=== PATIENT | male | born 1940 | race Caucasian/White ===

== ENCOUNTER → 2016-04-11 | Outpatient (CLI) | payer BC ==
[~2016-04-11] MED LIST: ATOR-54 PO; BYTI10 SC; CLOP1TAB15 PO; DOCU-94 PO; DUTA0.5C PO; GLC/500 PO; HMLI SC; INSDGI SQ; LABE100T23 PO; LOSA100T26 PO; MULTTAB58 PO; POLY335019 PO; ROSU20TA PO; TAMS0.4C38 PO
[2016-04-11 13:32] VITALS: BP 130/74; PULSE 69; TEMP 37.1; O2SAT 97
--- NOTE | 2016-04-11 16:23 | Radiation Oncology Follow-Up ---
Radiation Oncology Follow-Up Date of Visit Apr 11, 2016. Reason For Visit One-month follow-up Radiation Completion Date Seed - 12/14/15, IMRT - 03/13/16 Diagnosis (1) Prostate cancer Status: Acute Onset Date: 10/22/2012 Location: both lobes the prostate Histology Subtype: adenocarcinoma Stage: ll Permanent Comment: Rising PSA , history of BPH Benign prostate biopsy in 2003 Rising PSA to 11.5 on Avodart Status post ultrasound-guided biopsies 10/22/2012 [place]hel[place] 3+3 1 of 14 biopsies positive Active surveillance Status post rebiopsy 01/10/2014 [place] 3+3 1 of 14 biopsies positive Status post rebiopsy 05/10/2015 [place] 3+41 of 14 biopsies positive Fermagon 120 mg 08/14/2015 Fermagon 80 mg 09/25/2015 Status post prostate seed implant 12/14/2015 59 seeds were placed received 8500 cGy Fermagon 120 mg 02/02/2016 Fermagon 80 mg 03/05/2016 Status post completion of radiation therapy with IMRT/IGRT 03/13/2016 received 4500 cGy Fermagon 80 mg 04/04/2016 (last injection) Last Edited By: Anne Peguero on Apr 11, 2016 16:16 History of Present Illness He has a 75-year-old gentleman previously seen in our office in consultation . He had been followed with serial PSAs and had a known history of benign prostatic hypertrophy. His PSA had risen to 5.76 which converts to 11.5 while on Avodart. He underwent a prostate biopsy 10/22/2012. This revealed one of 14 biopsies to be positive at the right apex. [place] was 3+3 with 16% involvement. Case [id number]. He continued on surveillance and had a recheck biopsy 01/10/2014. This again showed 1 of 14 biopsies positive. This was at the left apex. [place] was 3+3 and involved 30% of the core. He continued active surveillance and had a repeat biopsy 05/10/2015. This showed a [place] 3 +4. He 4 was 10% of the biopsy. A more recent PSA showed an elevation of the PSA at 4.320. He is on Avodart therefore the PSA is 8.64. He was seen in follow-up 05/30/2015. Options of treatment were reviewed with him and he made the decision to be treated with tri-modality. He started hormone suppression with degarelix. On 12/14/2015 he had a prostate seed implant placed. 59 seeds were placed and he received 8500 cGy. Over the past 6 weeks he has had increased urinary symptoms but of late these have now improved. He completed weekly AUA score sheets and brought these with him today. The AUA on 12/21/2015 was 24. December 27 AUA of 26. January 03 AUA was 33. January 10 AUA of 33. January 17 AUA of 33. January 24 AUA score of 16 and this was rechecked in the office and he gave 17. He also completed expanded prostate cancer index composite for clinical practice and gave a score of 2 of 12 and urinary incontinence symptoms. He gave a score of 9 of 12 in urinary irritation symptoms. He gave a score of 3 of 12 in bowel symptoms. He does feel these are improving. He had seen his PCP who recommended prune juice and Merillax. This combination is helping with his bowel symptoms. He gave a score of 8 of 12 in sexual symptoms. He stated this was not a problem. He gave a score of 1 of 12 in hormonal vitality symptoms. His total was 23 of 60. He then returned to undergo CT simulation for IMRT IGRT. The treatment was completed 03/13/2016. He received 4500 cGy Interim History He's been doing well over the past month. His urinary symptoms have steadily improved. His AUA score was 14. He completed expanded prostate cancer index composite for clinical practice and gave a score of 212 and urinary incontinence symptoms. He gave a score of 3 of 12 urinary irritation symptoms. He gave a score of 212 in bowel symptoms. He gave a score of 8 of 12 and sexual symptoms. She notices is not a problem. He gave a score of 3 of 12 in hormonal vitality symptoms. His total was 18 of 60. At the end of treatment he was on tamsulosin 2 pills daily. Approximately 1 week ago he decreased this to one pill a day and has been doing fine at this dose. He saw Dr. Fry week ago and had a post voiding residual evaluation. He stated that the bladder was emptying well. He has developed a problem with anemia over this past year. His primary care physician is now referred him to hematology for iron deficiency anemia. He stated that he was given cards to send in stool specimens as part of his evaluation. He had a PSA 03/13/2016 was less than 0.010. Allergies Coded Allergies: Penicillins (Verified Allergy, Unknown, unknown, 02/20/16) Home Medications Scheduled Atorvastatin (Lipitor), 1 TAB PO QPM Clopidogrel (Plavix), 75 MG PO QAM Dutasteride (Avodart), 0.5 MG PO HS Exenatide (Byetta), 10 MCG SC BID WITH MEALS Insulin Glargine (Lantus), 12-14 UNITS SQ TID Insulin Lispro (Humalog), 0 SC ACHS Labetalol Hcl (Labetalol Hcl), 100 MG PO BID Losartan Potassium & Hydrochlo (Losartan Potassium/Hydroc), 0.5 TAB PO Q2D Metformin Hcl (Glucophage), 500 MG PO BID Multiple Vitamin (Multivitamin), 1 TAB PO QAM Tamsulosin Hcl (Flomax), 1 CAP PO DAILY Scheduled PRN Docusate Sodium (Colace), 1 CAP PO DAILY PRN for Constipation Polyethylene Glycol 3350 (Miralax), 17 GM PO DAILY PRN for Constipation Review of Systems Gastrointestinal: Symptoms: WNL Oral: Symptoms: No Problems Respiratory: Symptoms: WNL Urinary: Symptoms: Nocturia Comments: Nocturia x 1-2, See AUA & EPIC Skin: Symptoms: No Problems Physical Exam Vital Signs Date Time Temp Pulse Resp B/P Pulse Ox O2 Delivery O2 Flow Rate FiO2 04/11/16 13:32 37.1 69 16 130/74 97 Fatigue: None General Appearance: no apparent distress Eyes: normal inspection, EOMI ENT: normal ENT inspection, hearing grossly normal Neck: no adenopathy Respiratory/Chest: lungs clear, no respiratory distress, no accessory muscle use Cardiovascular: regular rate, rhythm, no gallop, no murmur Abdomen: non tender, soft, no organomegaly Extremities: no pedal edema Neurologic/Psychiatric: no motor/sensory deficits, alert, normal mood/affect Skin: warm/dry Lymphatic: no adenopathy Laboratory Studies Test 01/11/16 16:25 01/17/16 11:16 02/20/16 08:53 03/13/16 10:25 Sodium Level 139 mmol/L (136-145) Potassium Level 3.9 mmol/L (3.5-5.1) Chloride Level 103 mmol/L (98-107) Carbon Dioxide Level 29 mmol/L (21-32) Anion Gap 7.0 mmol/L (3-11) Blood Urea Nitrogen 19 mg/dl (7-18) 21 mg/dl (7-18) Creatinine 1.10 mg/dl (0.60-1.40) 1.10 mg/dl (0.60-1.40) Estimated GFR () 76.2 76.2 Estimated GFR (Non- 65.8 65.8 BUN/Creatinine Ratio 16.9 (10-20) 18.9 (10-20) Random Glucose 84 mg/dl (70-99) Estimated Average Glucose 166 mg/dl Hemoglobin A1c 7.4 % (4.5-5.6) Calcium Level 9.0 mg/dl (8.5-10.1) Aspartate Amino Transferase (AST) 21 U/L (15-37) Alanine Aminotransferase (ALT) 29 U/L (12-78) Total Creatine Kinase 299 U/L (39-308) 285 U/L (39-308) Amylase Level 79 U/L (25-115) Lipase 174 U/L (73-393) Immature Granulocyte % (Auto) 0.3 % White Blood Count 7.24 K/uL (4.8-10.8) 4.90 K/uL (4.8-10.8) Red Blood Count 3.86 M/uL (4.7-6.1) 3.55 M/uL (4.7-6.1) Hemoglobin 11.3 g/dl (14.0-18.0) 10.4 g/dL (14.0-18.0) Hematocrit 33.3 % (42-52) 29.8 % (42-52) Mean Corpuscular Volume 86.3 fL (80-100) 83.9 fL (80-100) Mean Corpuscular Hemoglobin 29.3 pg (25-34) 29.3 pg (25-34) Mean Corpuscular Hemoglobin Concent 33.9 g/dl (32-36) 34.9 g/dl (32-36) Platelet Count 278 K/uL (130-400) 218 K/uL (130-400) Mean Platelet Volume 9.1 fL (7.4-10.4) 8.8 fL (7.4-10.4) Neutrophils (%) (Auto) 57.5 % Lymphocytes (%) (Auto) 27.9 % Monocytes (%) (Auto) 10.2 % Eosinophils (%) (Auto) 3.3 % Basophils (%) (Auto) 0.8 % Neutrophils # (Auto) 4.16 K/uL (1.4-6.5) Lymphocytes # (Auto) 2.02 K/uL (1.2-3.4) Monocytes # (Auto) 0.74 K/uL (0.11-0.59) Eosinophils # (Auto) 0.24 K/uL (0-0.5) Basophils # (Auto) 0.06 K/uL (0-0.2) Immature Granulocyte # (Auto) 0.02 K/uL (0.00-0.02) Erythrocyte Sedimentation Rate 12 mm/hr (0-14) Absolute Reticulocyte Count 0.05 10^6/uL (0.02-0.10) 0.04 10^6/uL (0.02-0.10) Percent Reticulocyte Count 1.4 % (0.5-2.0) 1.2 % (0.5-2.0) Haptoglobin 112 MG/DL (43-212) Iron Level 46 mcg/dl (35-175) Transferrin 242 mg/dl (200-360) Transferrin % Saturation 14 % (20-50) Ferritin 122.2 ng/ml (8.0-388.0) Vitamin B12 Level 399 pg/mL (211-911) Folate 11.24 ng/mL (>5.38) RDW Standard Deviation 38.7 fL (36.4-46.3) RDW Coefficient of Variation 12.6 % (11.5-14.5) Prostate Specific Antigen < 0.010 ng/ml (0.000-4.000) Test 03/30/16 13:04 White Blood Count 4.98 K/uL (4.8-10.8) Red Blood Count 3.74 M/uL (4.7-6.1) Hemoglobin 10.9 g/dL (14.0-18.0) Hematocrit 31.5 % (42-52) Mean Corpuscular Volume 84.2 fL (80-100) Mean Corpuscular Hemoglobin 29.1 pg (25-34) Mean Corpuscular Hemoglobin Concent 34.6 g/dl (32-36) Platelet Count 209 K/uL (130-400) Mean Platelet Volume 8.4 fL (7.4-10.4) Neutrophils (%) (Auto) 61.5 % Lymphocytes (%) (Auto) 23.7 % Monocytes (%) (Auto) 10.6 % Eosinophils (%) (Auto) 3.4 % Basophils (%) (Auto) 0.6 % Neutrophils # (Auto) 3.06 K/uL (1.4-6.5) Lymphocytes # (Auto) 1.18 K/uL (1.2-3.4) Monocytes # (Auto) 0.53 K/uL (0.11-0.59) Eosinophils # (Auto) 0.17 K/uL (0-0.5) Basophils # (Auto) 0.03 K/uL (0-0.2) RDW Standard Deviation 39.9 fL (36.4-46.3) RDW Coefficient of Variation 13.0 % (11.5-14.5) Immature Granulocyte % (Auto) 0.2 % Immature Granulocyte # (Auto) 0.01 K/uL (0.00-0.02) Iron Level 51 mcg/dl (35-175) Transferrin 197 mg/dl (200-360) Transferrin % Saturation 18 % (20-50) Ferritin 232.9 ng/ml (8.0-388.0) Assessment & Plan Plan: Continue regular follow-up with his PCP and Dr. Fry. He'll be seeing Dr. Fry in 6 months with a recheck PSA. We discussed the effect of the hormone suppression on the value of the PSA. He understands that the hormonal suppression will continue to affect this until it is out of his system. He had his last injection of Fermagon on 04/04/2016. We also reviewed its side effects. He is having hot flashes and noted fatigue. He was given a order to have PSA prior to his visit which will take place in 6 months. We asked him to call if she has any questions or concerns in the interim. Total Time In Follow-Up I spent 20 minutes speaking to the patient and performing examination. I spent 15 minutes reviewing information in completing this note. Copy To Williams Fry MD, Urology; Reza Alvarado Jr,D.O.
== END | disposition home or self-care (01) ==
LOC: C.ONC 13:28
PROVIDERS: ATTEND Radiology Radiation Oncology
DX: Z08 Encounter for follow-up examination after completed treatment for malignant neoplasm (principal); Z92.3 Personal history of irradiation; Z85.46 Personal history of malignant neoplasm of prostate

== ENCOUNTER → 2016-04-15 | Outpatient (CLI) | payer BC | END | disposition home or self-care (01) | LOC: C.LAB 09:31 | DX: D64.9 Anemia, unspecified (principal) ==

== ENCOUNTER → 2016-05-14 | Outpatient (CLI) | payer BC ==
[2016-05-14 13:11] LABS: BASO % 1.1 %; BASO ABS # 0.06 K/uL (0-0.2); COMPLETE YES; EOS % 3.3 %; HEMATOCRIT 31.8 % (42-52); IG% 0.4 %; LYMPH % 21.2 %; LYMPH ABS # 1.16 K/uL (1.2-3.4); MEAN CORPUSCULAR HEMOGLOBIN 29.9 pg (25-34); MEAN CORPUSCULAR HGB CONC 35.2 g/dl (32-36); MEAN PLATELET VOLUME 9.2 fL (7.4-10.4); MONO % 10.2 %; NEUT % 63.8 %; PLATELET COUNT 252 K/uL (130-400); RED BLOOD COUNT 3.74 M/uL (4.7-6.1); WHITE BLOOD COUNT 5.48 K/uL (4.8-10.8)
[2016-05-14 13:19] LABS: ALT/SGPT 28 U/L (12-78); AST/SGOT 20 U/L (15-37); BLOOD UREA NITROGEN 22 mg/dl (7-18); BUN/CREATININE RATIO 18.5 (10-20); CARBON DIOXIDE 26 mmol/L (21-32); CHLORIDE 105 mmol/L (98-107); GLUCOSE 87 mg/dl (70-99); POTASSIUM 4.2 mmol/L (3.5-5.1); SODIUM 142 mmol/L (136-145)
[2016-05-14 13:24] LABS: ESTIMATED AVERAGE GLUCOSE 151 mg/dl; HA1C FLAG Normal (Normal)
== END | disposition home or self-care (01) ==
LOC: C.LAB 12:05
DX: E11.9 Type 2 diabetes mellitus without complications (principal); D64.9 Anemia, unspecified; E78.5 Hyperlipidemia, unspecified; I10 Essential (primary) hypertension

== ENCOUNTER → 2016-07-03 | Outpatient (CLI) | payer BC ==
[~2016-07-03] MED LIST changes: +INSDGIPEN SC; +INSU100I SC; -LOSA100T26 PO; +LOSA100T33 PO
[2016-07-03 13:47] LABS: BLOOD UREA NITROGEN 28 mg/dl (7-18); BUN/CREATININE RATIO 23.1 (10-20)
[2016-07-03 13:51] LABS: PROSTATE SPECIFIC ANTIGEN < 0.010 ng/ml (0.000-4.000)
== END | disposition home or self-care (01) ==
LOC: C.LAB 12:24
PROVIDERS: ATTEND Urology
DX: N40.1 Benign prostatic hyperplasia with lower urinary tract symptoms (principal)

== ENCOUNTER → 2016-08-20 | Outpatient (CLI) | payer BC ==
--- NOTE | 2016-08-20 12:56 | DIAGNOSTIC IMAGING REPORT ---
LEFT HAND 3 VIEWS CLINICAL HISTORY: Left hand pain. Anemia. Arthritis. FINDINGS: 3 views of left hand are obtained. No prior studies are available for comparison at the time of dictation. The skeletal structures are osteopenic. No fracture is identified. Degenerative narrowing is seen at the radiocarpal articulation. Moderate arthritic changes present the first metacarpophalangeal joint. Erosive arthritic change is seen at the second distal interphalangeal joint. Only mild arthritic change is present involving the remainder of the interphalangeal joints. Small bony erosions are suggested in the second through fifth metacarpal heads. Mild soft tissue swelling suggested in the fingers. Vascular calcifications are suggested along the volar aspect of the wrist. IMPRESSION: 1. No acute bony abnormality is identified. 2. Osteopenia and degenerative change as above, greatest involving the first metacarpophalangeal and the second distal interphalangeal joints. Electronically signed by: Charles Ttoh M.D. 08/20/2016 12:55 PM Dictated Date/Time: 08/20/2016 12:53 PM
[2016-08-20 13:30] LABS: BASO % 1.1 %; BASO ABS # 0.06 K/uL (0-0.2); COMPLETE YES; EOS % 3.1 %; HEMATOCRIT 34.2 % (42-52); IG% 0.2 %; LYMPH % 26.3 %; LYMPH ABS # 1.46 K/uL (1.2-3.4); MEAN CELL VOLUME 87.2 fL (80-100); MEAN CORPUSCULAR HEMOGLOBIN 29.8 pg (25-34); MEAN CORPUSCULAR HGB CONC 34.2 g/dl (32-36); MEAN PLATELET VOLUME 9.3 fL (7.4-10.4); NEUT % 58.3 %; PLATELET COUNT 264 K/uL (130-400); RED BLOOD COUNT 3.92 M/uL (4.7-6.1); WHITE BLOOD COUNT 5.56 K/uL (4.8-10.8)
[2016-08-20 14:07] LABS: ESTIMATED AVERAGE GLUCOSE 157 mg/dl; HA1C FLAG Normal (Normal)
[2016-08-20 14:43] LABS: ALT/SGPT 32 U/L (12-78); AST/SGOT 22 U/L (15-37); BLOOD UREA NITROGEN 25 mg/dl (7-18); CALCIUM 9.1 mg/dl (8.5-10.1); CARBON DIOXIDE 31 mmol/L (21-32); CHLORIDE 105 mmol/L (98-107); GLUCOSE 106 mg/dl (70-99); POTASSIUM 4.4 mmol/L (3.5-5.1); SODIUM 141 mmol/L (136-145)
[2016-08-20 14:47] LABS: C-REACTIVE PROTEIN < 0.29 mg/dl (0-0.29); CHOLESTEROL 143 mg/dl (0-200); HDL CHOLESTEROL 48 mg/dl; LDL CHOLESTEROL CALCULATED 77 mg/dl; RHEUMATOID FACTOR < 10.0 U/mL (0-15); TRIGLYCERIDES 90 mg/dl (0-150); VERY LOW DENSITY LIPOPROT CALC 18 mg/dl
[2016-08-20 15:25] LABS: LYME DISEASE AB IGG NEG (NEG); LYME DISEASE AB IGM NEG (NEG)
== END | disposition home or self-care (01) ==
LOC: C.RAD 12:04
DX: I10 Essential (primary) hypertension (principal); M19.90 Unspecified osteoarthritis, unspecified site; E11.9 Type 2 diabetes mellitus without complications; E78.5 Hyperlipidemia, unspecified

== ENCOUNTER → 2016-09-09 | Outpatient (CLI) | payer BC ==
[2016-09-09 12:49] LABS: BASO % 0.7 %; BASO ABS # 0.04 K/uL (0-0.2); COMPLETE YES; EOS % 3.1 %; HEMATOCRIT 32.7 % (42-52); IG% 0.2 %; LYMPH % 24.4 %; LYMPH ABS # 1.44 K/uL (1.2-3.4); MEAN CELL VOLUME 86.7 fL (80-100); MEAN CORPUSCULAR HEMOGLOBIN 28.6 pg (25-34); NEUT % 63.6 %; PLATELET COUNT 270 K/uL (130-400); RED BLOOD COUNT 3.77 M/uL (4.7-6.1); WHITE BLOOD COUNT 5.89 K/uL (4.8-10.8)
[2016-09-09 13:14] LABS: ALT/SGPT 35 U/L (12-78); BLOOD UREA NITROGEN 21 mg/dl (7-18); BUN/CREATININE RATIO 18.6 (10-20); CARBON DIOXIDE 28 mmol/L (21-32); CHLORIDE 105 mmol/L (98-107); GLUCOSE 109 mg/dl (70-99); POTASSIUM 4.2 mmol/L (3.5-5.1); SODIUM 141 mmol/L (136-145)
[2016-09-09 13:15] LABS: ALB/GLOB RATIO 1.1 (0.9-2); ALKALINE PHOSPHATASE 64 U/L (45-117); AST/SGOT 26 U/L (15-37)
== END | disposition home or self-care (01) ==
LOC: C.LAB 10:21
PROVIDERS: ATTEND Internal Medicine Hematology & Oncology
DX: D64.9 Anemia, unspecified (principal)

== ENCOUNTER → 2016-10-02 | Outpatient (CLI) | payer BC ==
[~2016-10-02] MED LIST changes: -INSDGIPEN SC; -INSU100I SC; +LOSA100T26 PO; -LOSA100T33 PO
[2016-10-02 14:15] VITALS: BP 136/62; PULSE 72; TEMP 37.1; O2SAT 95
--- NOTE | 2016-10-02 15:42 | Radiation Oncology Follow-Up ---
Radiation Oncology Follow-Up Date of Visit Oct 02, 2016. Reason For Visit 6 month follow-up Radiation Completion Date Hormonal therapy;Seed implant 12/14/15;Ext. RT 03/13/16 Diagnosis (1) Prostate cancer Status: Resolved Onset Date: 10/22/2012 Location: both lobes the prostate Histology Subtype: adenocarcinoma Stage: ll Permanent Comment: Rising PSA , history of BPH Benign prostate biopsy in 2003 Rising PSA to 11.5 on Avodart Status post ultrasound-guided biopsies 10/22/2012 [place] 3+3 1 of 14 biopsies positive Active surveillance Status post rebiopsy 01/10/2014 [place] 3+3 1 of 14 biopsies positive Status post rebiopsy 05/10/2015 [place] 3+41 of 14 biopsies positive Fermagon 120 mg 08/14/2015 Fermagon 80 mg 09/25/2015 Status post prostate seed implant 12/14/2015 59 seeds were placed received 8500 cGy Fermagon 120 mg 02/02/2016 Fermagon 80 mg 03/05/2016 Status post completion of radiation therapy with IMRT/IGRT 03/13/2016 received 4500 cGy Fermagon 80 mg 04/04/2016 (last injection) Last Edited By: Anne Peguero on Apr 11, 2016 16:16 History of Present Illness This is a 75-year-old gentleman previously seen in our office in consultation . He had been followed with serial PSAs and had a known history of benign prostatic hypertrophy. His PSA had risen to 5.76 which converts to 11.5 while on Avodart. He underwent a prostate biopsy 10/22/2012. This revealed one of 14 biopsies to be positive at the right apex. [place] was 3+3 with 16% involvement. Case [id number]. He continued on surveillance and had a recheck biopsy 01/10/2014. This again showed 1 of 14 biopsies positive. This was at the left apex. [place] was 3+3 and involved 30% of the core. He continued active surveillance and had a repeat biopsy 05/10/2015. This showed a [place] 3 +4. He 4 was 10% of the biopsy. A more recent PSA showed an elevation of the PSA at 4.320. He is on Avodart therefore the PSA is 8.64. He was seen in follow-up 05/30/2015. Options of treatment were reviewed with him and he made the decision to be treated with tri-modality. He started hormone suppression with degarelix. On 12/14/2015 he had a prostate seed implant placed. 59 seeds were placed and he received 8500 cGy. Over the past 6 weeks he has had increased urinary symptoms but of late these have now improved. He completed weekly AUA score sheets and brought these with him today. The AUA on 12/21/2015 was 24. December 27 AUA of 26. January 03 AUA was 33. January 10 AUA of 33. January 17 AUA of 33. January 24 AUA score of 16 and this was rechecked in the office and he gave 17. He also completed expanded prostate cancer index composite for clinical practice and gave a score of 2 of 12 and urinary incontinence symptoms. He gave a score of 9 of 12 in urinary irritation symptoms. He gave a score of 3 of 12 in bowel symptoms. He does feel these are improving. He had seen his PCP who recommended prune juice and Merillax. This combination is helping with his bowel symptoms. He gave a score of 8 of 12 in sexual symptoms. He stated this was not a problem. He gave a score of 1 of 12 in hormonal vitality symptoms. His total was 23 of 60. He then returned to undergo CT simulation for IMRT IGRT. The treatment was completed 03/13/2016. He received 4500 cGy Interim History He is stable from urinary standpoint. His AUA score was 13. He continues on tamsulosin once daily. Though the androgen deprivation finished in March continues to have hot flashes. He feels these have increased of late. These occur 3-4 times during the day and 3-4 times during the night. He did see Dr. Fry 07/10/2016. He is up-to-date on PSA evaluations. He had a PSA 2016 and that was less than 0.010. He is also following with Dr. Singh regards to iron deficiency anemia. He completed and expanded prostate cancer index composite for clinical practice. He gave a score of one of 12 and urinary incontinence symptoms. He gave a score of 2 of 12 urinary irritation symptoms. He of score 0 of 12 and bowel symptoms. He gave a score of 8 of 12 in sexual symptoms. To note he stated this was not a problem. He gave a score of one of 12 and hormonal vitality symptoms. His total was 12 of 60. Allergies Coded Allergies: Penicillins (Verified Allergy, Unknown, unknown, 02/20/16) Home Medications Scheduled Clopidogrel (Plavix), 75 MG PO QAM Dutasteride (Avodart), 0.5 MG PO HS Exenatide (Byetta), 10 MCG SC BID WITH MEALS Hctz/Losartan (Hyzaar 12.5MG/100MG), 0.5 TAB PO Q2D Insulin Glargine (Lantus), 12-14 UNITS SQ TID Insulin Lispro (Humalog), 0 SC ACHS Labetalol Hcl (Labetalol Hcl), 100 MG PO BID Metformin Hcl (Glucophage), 500 MG PO BID Rosuvastatin Calcium (Crestor), 1 TAB PO DAILY Tamsulosin Hcl (Flomax), 1 CAP PO DAILY Scheduled PRN Docusate Sodium (Colace), 1 CAP PO DAILY PRN for Constipation Polyethylene Glycol 3350 (Miralax), 17 GM PO DAILY PRN for Constipation Review of Systems Gastrointestinal: Symptoms: WNL GI Comments: Diarrhea over past 2 days;No fiber supplements; Oral: Symptoms: No Problems Respiratory: Symptoms: WNL Urinary: Symptoms: WNL Comments: 2 voids/night;Stream stops/goes during void;taking tamsulosin; Skin: Symptoms: No Problems Physical Exam Vital Signs Date Time Temp Pulse Resp B/P (MAP) Pulse Ox O2 Delivery O2 Flow Rate FiO2 10/02/16 14:15 37.1 72 16 136/62 95 Pain: Patient Pain Scale: 0 - 10 Initial Pain Intensity: 0.0 Fatigue: None General Appearance: no apparent distress Eyes: normal inspection, EOMI ENT: normal ENT inspection, hearing grossly normal Neck: no adenopathy, thyroid normal Respiratory/Chest: lungs clear, no respiratory distress, no accessory muscle use Cardiovascular: regular rate, rhythm, no gallop, no murmur Abdomen: non tender, soft, no organomegaly Anal / Rectum: Normal sphincter tone. Prostate consistent with seed implant. No rectal masses no rectal bleeding. Extremities: no pedal edema Neurologic/Psychiatric: no motor/sensory deficits, alert, normal mood/affect Skin: warm/dry Laboratory Studies Test 07/03/16 12:30 08/20/16 12:24 09/09/16 10:25 Prostate Specific Antigen < 0.010 ng/ml (0.000-4.000) White Blood Count 5.56 K/uL (4.8-10.8) 5.89 K/uL (4.8-10.8) Red Blood Count 3.92 M/uL (4.7-6.1) 3.77 M/uL (4.7-6.1) Hemoglobin 11.7 g/dL (14.0-18.0) 10.8 g/dL (14.0-18.0) Hematocrit 34.2 % (42-52) 32.7 % (42-52) Mean Corpuscular Volume 87.2 fL (80-100) 86.7 fL (80-100) Mean Corpuscular Hemoglobin 29.8 pg (25-34) 28.6 pg (25-34) Mean Corpuscular Hemoglobin Concent 34.2 g/dl (32-36) 33.0 g/dl (32-36) Platelet Count 264 K/uL (130-400) 270 K/uL (130-400) Mean Platelet Volume 9.3 fL (7.4-10.4) 9.0 fL (7.4-10.4) Neutrophils (%) (Auto) 58.3 % 63.6 % Lymphocytes (%) (Auto) 26.3 % 24.4 % Monocytes (%) (Auto) 11.0 % 8.0 % Eosinophils (%) (Auto) 3.1 % 3.1 % Basophils (%) (Auto) 1.1 % 0.7 % Neutrophils # (Auto) 3.25 K/uL (1.4-6.5) 3.75 K/uL (1.4-6.5) Lymphocytes # (Auto) 1.46 K/uL (1.2-3.4) 1.44 K/uL (1.2-3.4) Monocytes # (Auto) 0.61 K/uL (0.11-0.59) 0.47 K/uL (0.11-0.59) Eosinophils # (Auto) 0.17 K/uL (0-0.5) 0.18 K/uL (0-0.5) Basophils # (Auto) 0.06 K/uL (0-0.2) 0.04 K/uL (0-0.2) RDW Standard Deviation 40.5 fL (36.4-46.3) 40.7 fL (36.4-46.3) RDW Coefficient of Variation 12.7 % (11.5-14.5) 12.7 % (11.5-14.5) Immature Granulocyte % (Auto) 0.2 % 0.2 % Immature Granulocyte # (Auto) 0.01 K/uL (0.00-0.02) 0.01 K/uL (0.00-0.02) Erythrocyte Sedimentation Rate 33 mm/hr (0-14) Absolute Reticulocyte Count 0.04 10^6/uL (0.02-0.10) Percent Reticulocyte Count 1.1 % (0.5-2.0) Sodium Level 141 mmol/L (136-145) 141 mmol/L (136-145) Potassium Level 4.4 mmol/L (3.5-5.1) 4.2 mmol/L (3.5-5.1) Chloride Level 105 mmol/L (98-107) 105 mmol/L (98-107) Carbon Dioxide Level 31 mmol/L (21-32) 28 mmol/L (21-32) Anion Gap 5.0 mmol/L (3-11) 8.0 mmol/L (3-11) Blood Urea Nitrogen 25 mg/dl (7-18) 21 mg/dl (7-18) Creatinine 1.10 mg/dl (0.60-1.40) 1.10 mg/dl (0.60-1.40) Estimated GFR () 75.7 75.7 Estimated GFR (Non- 65.3 65.3 BUN/Creatinine Ratio 23.0 (10-20) 18.6 (10-20) Random Glucose 106 mg/dl (70-99) 109 mg/dl (70-99) Estimated Average Glucose 157 mg/dl Hemoglobin A1c 7.1 % (4.5-5.6) Calcium Level 9.1 mg/dl (8.5-10.1) 9.0 mg/dl (8.5-10.1) Iron Level 63 mcg/dl (35-175) Transferrin 235 mg/dl (200-360) Transferrin % Saturation 19 % (20-50) Ferritin 203.0 ng/ml (8.0-388.0) Aspartate Amino Transferase (AST) 22 U/L (15-37) 26 U/L (15-37) Alanine Aminotransferase (ALT) 32 U/L (12-78) 35 U/L (12-78) Total Creatine Kinase 350 U/L (39-308) C-Reactive Protein < 0.29 mg/dl (0-0.29) Triglycerides Level 90 mg/dl (0-150) Cholesterol Level 143 mg/dl (0-200) HDL Cholesterol 48 mg/dl LDL Cholesterol, Calculated 77 mg/dl VLDL Cholesterol, Calculated 18 mg/dl Cholesterol/HDL Ratio 3.0 Rheumatoid Factor < 10.0 U/mL (0-15) Anti-Nuclear Antibody Screen NEGATIVE (NEGATIVE) Lyme Disease IgG Antibody NEG (NEG) Lyme Disease IgM Antibody NEG (NEG) Total Bilirubin 0.7 mg/dl (0.2-1) Alkaline Phosphatase 64 U/L (45-117) Lactate Dehydrogenase 387 U/L (87-241) Total Protein 6.7 gm/dl (6.4-8.2) Albumin 3.5 gm/dl (3.4-5.0) Globulin 3.2 gm/dl (2.5-4.0) Albumin/Globulin Ratio 1.1 (0.9-2) Assessment & Plan Plan: We reviewed his PSA. We discussed the hot flashes. He is going to try vitamin E 400 international units daily. Continue follow-up with Dr. Fry. He'll be seeing him in January. We asked him to return to our office in July 2017. Continue with recheck PSAs. He may call if he has the questions or concerns in the interim. Total Time In Follow-Up I spent 20 minutes speaking to the patient and performing examination. I spent 15 minutes reviewing information and completing this note. Copy To Williams Fry MD, Urology; Reza Alvarado,Jr,D.O.
== END | disposition home or self-care (01) ==
LOC: C.ONC 13:57
PROVIDERS: ATTEND Physician Assistant Medical
DX: Z08 Encounter for follow-up examination after completed treatment for malignant neoplasm (principal); Z92.3 Personal history of irradiation; Z85.46 Personal history of malignant neoplasm of prostate

== ENCOUNTER → 2017-01-01 | Outpatient (CLI) | payer BC ==
[~2017-01-01] MED LIST changes: -ATOR-54 PO; -MULTTAB58 PO
[2017-01-01 10:15] LABS: BASO % 0.5 %; BASO ABS # 0.03 K/uL (0-0.2); COMPLETE YES; EOS % 3.5 %; HEMATOCRIT 32.3 % (42-52); IG% 0.3 %; LYMPH % 23.1 %; LYMPH ABS # 1.46 K/uL (1.2-3.4); MEAN CELL VOLUME 85.2 fL (80-100); MEAN CORPUSCULAR HEMOGLOBIN 28.5 pg (25-34); MEAN CORPUSCULAR HGB CONC 33.4 g/dl (32-36); MEAN PLATELET VOLUME 8.9 fL (7.4-10.4); MONO % 8.9 %; NEUT % 63.7 %; PLATELET COUNT 244 K/uL (130-400); RED BLOOD COUNT 3.79 M/uL (4.7-6.1); WHITE BLOOD COUNT 6.31 K/uL (4.8-10.8)
[2017-01-01 10:44] LABS: ALT/SGPT 32 U/L (12-78); BLOOD UREA NITROGEN 20 mg/dl (7-18); BUN/CREATININE RATIO 18.5 (10-20); CALCIUM 9.3 mg/dl (8.5-10.1); CARBON DIOXIDE 28 mmol/L (21-32); CHLORIDE 103 mmol/L (98-107); GLUCOSE 186 mg/dl (70-99); POTASSIUM 4.1 mmol/L (3.5-5.1); SODIUM 138 mmol/L (136-145)
[2017-01-01 10:46] LABS: ALKALINE PHOSPHATASE 76 U/L (45-117); AST/SGOT 22 U/L (15-37)
[2017-01-02 16:58] LABS: ALBUMIN 3.7 G/DL (3.8-4.8); GAMMA GLOBULIN 0.8 G/DL (0.8-1.7); TOTAL PROTEIN 6.4 G/DL (6.2-8.3)
== END | disposition home or self-care (01) ==
LOC: C.LAB 09:42
PROVIDERS: ATTEND Internal Medicine Hematology & Oncology
DX: D64.9 Anemia, unspecified (principal)

== ENCOUNTER 2017-02-17 11:38 | Emergency (ER) | payer BC ==
[~2017-02-17] VITALS: Ht 162.6 cm; Wt 95.6 kg
[~2017-02-17 11:38] MED LIST changes: -LOSA100T26 PO; +LOSA100T33 PO
[2017-02-17 11:48] VITALS: Ht 162.6 cm; Wt 95.6 kg
--- NOTE | 2017-02-17 12:41 | DIAGNOSTIC IMAGING REPORT ---
L WRIST MIN 3 VIEWS ROUTINE CLINICAL HISTORY: LEFT, FALL ON EXTENDED LEFT WRIST. COMPARISON: Left hand radiograph August 20, 2016. FINDINGS: Alignment of the left wrist is anatomic. No fracture is identified. 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 IMPRESSION: No acute fracture or dislocation within the left wrist. Electronically signed by: Chris Raymond M.D. 02/17/2017 12:39 PM Dictated Date/Time: 02/17/2017 12:36 PM
[2017-02-17] MEDS ORDERED: INSU100I SC (12:48)
[2017-02-17] MEDS ORDERED: INSDGIPEN SC (12:48)
--- NOTE | 2017-02-17 13:15 | EMERGENCY ROOM VISIT NOTE ---
ED Visit Note First contact with patient: 12:04 CHIEF COMPLAINT: Left wrist injury 2 days ago HISTORY OF PRESENT ILLNESS: Patient is a [id number] 76-year-old white male who presents to the emergency department for evaluation of left wrist pain x 2 days. He tripped over a curb and fell early Friday morning. He tried to catch himself on his outstretched left hand/wrist. He had immediate onset of pain in the left wrist, thumb side. He applied ice to the area and took Tylenol through the weekend. He notes pain and swelling in the wrist and hand. 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 He rates his discomfort a 4/10. He denies any elbow pain. REVIEW OF SYSTEMS: Review of systems as per HPI. All other systems reviewed were negative. At least 6 systems reviewed. PMH: Electronic medical records are reviewed and summarized as above/below. See Problem List. SOCIAL HISTORY: Patient lives at home with his . Employed. PHYSICAL EXAM: Vital Signs: Reviewed Nurse's notes. CONSTITUTIONAL: Patient is a pleasant, well-appearing 76-year-old white male who is awake and alert and in no acute distress. MUSCULOSKELETAL: Examination of the left wrist show moderate circumferential soft tissue swelling. He is primarily tender over the distal radius, both dorsally, and laterally. There is no anatomic snuffbox tenderness. No pain along the first metacarpal. There is no obvious deformity of the distal forearm. The skin is intact. Flexion and extension of the fingers is intact. The fingers are warm and well perfused. EMERGENCY DEPARTMENT COURSE: X-rays of the left wrist were obtained, and negative for acute fracture or bony abnormality. Patient was placed in a wrist lacer. Conservative care measures were discussed. Differential diagnoses entertained included fracture, dislocation, sprain, contusion, dorsal impaction injury, among others. He was encouraged to rest, ice, elevate and wear the splint, and to follow-up with orthopedics if his symptoms are not improving. Blood pressure screening: Patient was found to have a slightly elevated blood pressure due to circumstances. I do not believe that the patient requires hypertension monitoring. Medication reconciliation: I attest that I have personally reviewed the patient' s current medication list. L WRIST MIN 3 VIEWS ROUTINE CLINICAL HISTORY: LEFT, FALL ON EXTENDED LEFT WRIST. COMPARISON: Left hand radiograph August 20, 2016. FINDINGS: Alignment of the left wrist is anatomic. No fracture is identified. 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 IMPRESSION: No acute fracture or dislocation within the left wrist. Problem List Medical Problems: (1) Diabetes Status: Chronic (2) Hyperlipidemia Nec/Nos Status: Chronic (3) Hypertension Nos Status: Chronic (4) Hypoglycemia Status: Resolved (5) Prostate cancer Permanent Comment: Rising PSA , history of BPH Benign prostate biopsy in 2003 Rising PSA to 11.5 on Avodart Status post ultrasound-guided biopsies 10/22/2012 [place] 3+3 1 of 14 biopsies positive Active surveillance Status post rebiopsy 01/10/2014 Nohelia 3+3 1 of 14 biopsies positive Status post rebiopsy 05/10/2015 [place] 3+41 of 14 biopsies positive Fermagon 120 mg 08/14/2015 Fermagon 80 mg 09/25/2015 Status post prostate seed implant 12/14/2015 59 seeds were placed received 8500 cGy Fermagon 120 mg 02/02/2016 Fermagon 80 mg 03/05/2016 Status post completion of radiation therapy with IMRT/IGRT 03/13/2016 received 4500 cGy Fermagon 80 mg 04/04/2016 (last injection) Status: Resolved Current/Historical Medications Scheduled Clopidogrel (Plavix), 75 MG PO QAM Dutasteride (Avodart), 0.5 MG PO HS Exenatide (Byetta), 10 MCG SC BID WITH MEALS Hctz/Losartan (Hyzaar 12.5MG/100MG), 0.5 TAB PO Q2D Insulin Glargine (Lantus Solostar), 12-14 UNITS SC TID Insulin Lispro (Human) (Humalog), UNITS SC ACHS Labetalol Hcl (Labetalol Hcl), 100 MG PO BID Metformin Hcl (Glucophage), 500 MG PO BID Rosuvastatin Calcium (Crestor), 1 TAB PO DAILY Tamsulosin Hcl (Flomax), 1 CAP PO DAILY Scheduled PRN Polyethylene Glycol 3350 (Miralax), 17 GM PO DAILY PRN for Constipation Allergies Coded Allergies: Penicillins (Verified Allergy, Unknown, unknown, 02/17/17) Vital Signs Date Time Temp Pulse Resp B/P (MAP) Pulse Ox O2 Delivery O2 Flow Rate FiO2 02/17/17 13:52 36.8 77 18 144/72 97 02/17/17 11:48 36.8 68 18 157/65 95 Room Air Departure Information Impression Primary Impression: Left wrist sprain Referrals Reza Alvarado Jr, D.O. (PCP) Mehul Schreiber D.O. Patient Instructions My [facility] Additional Instructions Ibuprofen(Motrin, Advil) may be used for fever or pain. Use 600mg every six hours as needed. Take with food. Avoid using more than 2400mg in a 24 hour period. Do not use 2400mg per day for more than three consecutive days without physician direction. Prolonged inappropriate use can lead to stomach upset or ulcers. This medication can be taken if you need to drive, work, or perform activities which may be dangerous when taking narcotic pain medication. (AND/OR) Acetaminophen(Tylenol) may be used for fever or pain. Use 1000mg every six hours as needed. Avoid using more than 3000mg in a 24 hour period. This medication can be taken if you need to drive, work, or perform activities which may be dangerous when taking narcotic pain medication. Ice compresses for 20 minutes at a time four times daily for 2-3 days. Use the wrist lacer as instructed. Rest and elevate your injury. Continue current medications. Return to the ER immediately for any numbness, tingling, severe pain, extreme swelling in the extremity or as needed. Followup with your family doctor or orthopedic surgery if no improvement in 5-7 days.
[2017-02-17 13:52] VITALS: BP 144/72; PULSE 77; TEMP 36.8; O2SAT 97
--- NOTE | 2017-02-17 14:06 | EMERGENCY ROOM VISIT NOTE ---
ED Visit Note First contact with patient: 12:04 Pt seen and examined at bedside. Xrays reviews, splint in place. Pt aware of all results, states splint not too tight, aware of need for follow-up, verbalized understanding of reasons to return.
== END 2017-02-17 13:57 | disposition home or self-care (01) ==
LOC: C.EDB 11:41 → C.EDD 13:57
DX: S63.502A Unspecified sprain of left wrist, initial encounter (principal); W10.1XXA Fall (on)(from) sidewalk curb, initial encounter; E11.9 Type 2 diabetes mellitus without complications; E78.5 Hyperlipidemia, unspecified; I10 Essential (primary) hypertension; Z80.42 Family history of malignant neoplasm of prostate; Z79.01 Long term (current) use of anticoagulants; Z79.4 Long term (current) use of insulin; Z79.84 Long term (current) use of oral hypoglycemic drugs; Z79.899 Other long term (current) drug therapy

== ENCOUNTER → 2017-03-17 | Outpatient (CLI) | payer BC ==
[~2017-03-17] MED LIST changes: -DOCU-94 PO; -HMLI SC; -INSDGI SQ; +INSDGIPEN SC; +INSU100I SC
[2017-03-17 14:15] LABS: BLOOD UREA NITROGEN 21 mg/dl (7-18); BUN/CREATININE RATIO 18.5 (10-20); CREATININE 1.13 mg/dl (0.60-1.40)
[2017-03-17 14:20] LABS: PROSTATE SPECIFIC ANTIGEN 0.012 ng/ml (0.000-4.000)
== END | disposition home or self-care (01) ==
LOC: C.LAB 11:41
PROVIDERS: ATTEND Urology
DX: C61 Malignant neoplasm of prostate (principal)

== ENCOUNTER → 2017-04-03 | Outpatient (CLI) | payer BC ==
[~2017-04-03] MED LIST changes: -LABE100T23 PO; +LABE100T3 PO
[2017-04-03 14:12] LABS: BASO % 0.7 %; BASO ABS # 0.05 K/uL (0-0.2); EOS % 3.2 %; EOS ABS # 0.22 K/uL (0-0.5); HEMATOCRIT 34.6 % (42-52); HEMOGLOBIN 11.5 g/dL (14.0-18.0); IG# 0.01 K/uL (0.00-0.02); LYMPH % 24.8 %; LYMPH ABS # 1.73 K/uL (1.2-3.4); MEAN CELL VOLUME 85.6 fL (80-100); MEAN CORPUSCULAR HEMOGLOBIN 28.5 pg (25-34); MEAN CORPUSCULAR HGB CONC 33.2 g/dl (32-36); MEAN PLATELET VOLUME 9.5 fL (7.4-10.4); MONO % 11.5 %; NEUT % 59.7 %; NEUT ABS # 4.16 K/uL (1.4-6.5); PLATELET COUNT 253 K/uL (130-400); RED CELL DISTRIBUTION WIDTH SD 41.2 fL (36.4-46.3); WHITE BLOOD COUNT 6.97 K/uL (4.8-10.8)
[2017-04-03 17:14] LABS: AST/SGOT 23 U/L (15-37); BLOOD UREA NITROGEN 19 mg/dl (7-18); CALCIUM 8.9 mg/dl (8.5-10.1); CARBON DIOXIDE 31 mmol/L (21-32); CHOLESTEROL 116 mg/dl (0-200); GLUCOSE 127 mg/dl (70-99); LDL CHOLESTEROL CALCULATED 43 mg/dl; POTASSIUM 4.1 mmol/L (3.5-5.1); SODIUM 136 mmol/L (136-145)
[2017-04-03 17:16] LABS: ALT/SGPT 37 U/L (12-78)
[2017-04-03 18:14] LABS: CREATININE RANDOM URINE 57.9 mg/dl
== END | disposition home or self-care (01) ==
LOC: C.LAB 12:29
DX: E11.9 Type 2 diabetes mellitus without complications (principal); D64.9 Anemia, unspecified; E78.5 Hyperlipidemia, unspecified

== ENCOUNTER → 2017-07-09 | Outpatient (CLI) | payer BC ==
[~2017-07-09] MED LIST changes: +LABE100T23 PO; -LABE100T3 PO
[2017-07-09 13:06] LABS: BASO % 0.7 %; BASO ABS # 0.06 K/uL (0-0.2); EOS % 2.4 %; EOS ABS # 0.21 K/uL (0-0.5); HEMATOCRIT 33.5 % (42-52); HEMOGLOBIN 11.2 g/dL (14.0-18.0); IG# 0.01 K/uL (0.00-0.02); LYMPH ABS # 1.47 K/uL (1.2-3.4); MEAN CELL VOLUME 84.4 fL (80-100); MEAN CORPUSCULAR HEMOGLOBIN 28.2 pg (25-34); MEAN CORPUSCULAR HGB CONC 33.4 g/dl (32-36); MEAN PLATELET VOLUME 8.9 fL (7.4-10.4); MONO % 7.4 %; MONO ABS # 0.64 K/uL (0.11-0.59); NEUT % 72.4 %; NEUT ABS # 6.26 K/uL (1.4-6.5); PLATELET COUNT 247 K/uL (130-400); RED CELL DISTRIBUTION WIDTH SD 39.9 fL (36.4-46.3); WHITE BLOOD COUNT 8.65 K/uL (4.8-10.8)
[2017-07-09 13:37] LABS: ALBUMIN 3.7 gm/dl (3.4-5.0); ALT/SGPT 28 U/L (12-78); AST/SGOT 22 U/L (15-37); BLOOD UREA NITROGEN 28 mg/dl (7-18); CARBON DIOXIDE 29 mmol/L (21-32); CREATININE 1.25 mg/dl (0.60-1.40); GLUCOSE 67 mg/dl (70-99); POTASSIUM 3.8 mmol/L (3.5-5.1); SODIUM 136 mmol/L (136-145)
[2017-07-09 13:40] LABS: ALKALINE PHOSPHATASE 68 U/L (45-117)
== END | disposition home or self-care (01) ==
LOC: C.LAB 12:06
PROVIDERS: ATTEND Internal Medicine Hematology & Oncology
DX: D64.9 Anemia, unspecified (principal)

== ENCOUNTER → 2017-07-21 | Outpatient (CLI) | payer BC ==
[2017-07-21 14:36] LABS: BASO % 0.5 %; BASO ABS # 0.03 K/uL (0-0.2); EOS % 3.6 %; EOS ABS # 0.21 K/uL (0-0.5); HEMOGLOBIN 10.9 g/dL (14.0-18.0); IG# 0.01 K/uL (0.00-0.02); LYMPH % 24.8 %; LYMPH ABS # 1.44 K/uL (1.2-3.4); MEAN CELL VOLUME 84.2 fL (80-100); MEAN CORPUSCULAR HEMOGLOBIN 28.7 pg (25-34); MEAN CORPUSCULAR HGB CONC 34.1 g/dl (32-36); MEAN PLATELET VOLUME 9.1 fL (7.4-10.4); MONO % 10.5 %; MONO ABS # 0.61 K/uL (0.11-0.59); NEUT % 60.4 %; PLATELET COUNT 250 K/uL (130-400); RED CELL DISTRIBUTION WIDTH CV 13.1 % (11.5-14.5); RED CELL DISTRIBUTION WIDTH SD 39.6 fL (36.4-46.3)
[2017-07-21 15:07] LABS: AST/SGOT 24 U/L (15-37); BLOOD UREA NITROGEN 23 mg/dl (7-18); CALCIUM 8.9 mg/dl (8.5-10.1); CARBON DIOXIDE 29 mmol/L (21-32); CREATININE 1.26 mg/dl (0.60-1.40); GLUCOSE 68 mg/dl (70-99); SODIUM 137 mmol/L (136-145)
[2017-07-21 15:10] LABS: ALT/SGPT 29 U/L (12-78)
[2017-07-22 06:15] LABS: HEMOGLOBIN A1C 7.9 % (4.5-5.6)
== END | disposition home or self-care (01) ==
LOC: C.LAB 12:46
DX: E11.9 Type 2 diabetes mellitus without complications (principal); D64.9 Anemia, unspecified; I10 Essential (primary) hypertension; E78.5 Hyperlipidemia, unspecified; C61 Malignant neoplasm of prostate

== ENCOUNTER → 2017-11-12 | Day surgery (SDC) | payer BC ==
[2017-11-07 10:46] VITALS: Ht 166.4 cm; Wt 97.7 kg
[~2017-11-12] VITALS: Ht 166.4 cm; Wt 97.7 kg
[~2017-11-12] MED LIST changes: +500ML BSS 0.3ML EPI 1:1000PF IRRIG ONE; +ACETAMINOPHEN 325 MG TAB PO PRN; +AMVISC PLUS 0.8ML SYRINGE INT OCU ONE; +ATROPINE SULFATE 0.1 MG/ML 5ML SYR IV PRN; +AcetaZOLAMIDE 250 MG TAB PO SCH; +BETAXOLOL HCL 0.25% OP SUSP PER DROP CHARGE OPR SCH; +BRIMONIDINE TART 0.2% OP SOLN PER DROP CHARGE ONE; +BSS FLUSH ONE; +ENDOCOAT 0.85ML SYRINGE INT OCU ONE; +EpHEDrine SULFATE INJ 50 MG/ML AMP IV PRN; +EpINEphrine INJ 1MG/ML AMP 1 MG/ML AMP ONE; +FENTANYL CITRATE INJ 50 MCG/1 ML 2 ML VIAL IV PRN; -LABE100T23 PO; +LABE100T3 PO; +LACTATED RINGER'S 1000ML 500 ML IV SCH; +LIDOCAINE 4% OP SOLN DROP CHARGE ONE; +LIDOCAINE 4% OP SOLN DROP CHARGE OPR SCH; +LIDOCAINE HCL 1% MPF 2 ML VIAL ONE; +MIDAZOLAM HCL 1 MG/ML 2ML VIAL ONE; +MIX: 4ML BSS 1ML EPI 1:1000 PF INSTIL ONE; +MOXIFLOXACIN OPH SOLN PER DROP CHARGE ONE; +ONDANSETRON INJ 2 MG/ML 2 ML VIAL IV PRN; -POLY335019 PO; +POVIDONE-IODINE OP SOLN 30 ML BTL ONE; +PROPARACAINE 0.5% OP SOLN PER DROP CHARGE OPR SCH; +TOBRAMYCIN/DEXAMETHASONE OPH OINT PER APPLN CHARGE ONE
--- NOTE | 2017-11-12 07:15 | History & Physical Bridge - SC ---
H&P Re-Evaluation Bridge Note: I have examined the patient, reviewed the History & Physical and in the interval since the performance of the History & Physical I have noted the following changes of clinical significance: No changes noted
[2017-11-12] MEDS: PHENYLEPHRINE HCL 2.5% OP SOLN PER DROP CHARGE OPR SCH ×2 (08:14→08:19)
[2017-11-12] MEDS: TROPICAMIDE 1% OP SOLN PER DROP CHARGE OPR SCH ×2 (08:15→08:20)
[2017-11-12] MEDS: CYCLOPENTOLATE HCL 1% OP SOLN PER DROP CHARGE OPR SCH ×2 (08:16→08:21)
[2017-11-12] MEDS: MOXIFLOXACIN OPH SOLN PER DROP CHARGE OPR SCH ×2 (08:17→08:27)
--- NOTE | 2017-11-12 08:56 | [facility] Operative Report ---
Operative Report Date of Service Nov 12, 2017. Operative Report 1. PREOPERATIVE DIAGNOSIS: Senile nuclear cataract, right eye. 2. POSTOPERATIVE DIAGNOSIS: Senile nuclear cataract, right eye. 3. PROCEDURE: Phacoemulsification of right cataract with posterior chamber lens implant, type [employer], model MX60E, power +23.0 diopters. ANESTHESIA: Local standby. SURGEON: Dr. Wolff. COMPLICATIONS: None. OPERATING TIME: 10 minutes. 4. OPERATION AND FINDINGS: DESCRIPTION OF PROCEDURE: The right pupil was dilated. The anesthetic was administered using a topical technique. The right eye was prepped and draped. A speculum was placed. A clear corneal incision was formed. The chamber was filled with Amvisc Plus and Endocoat. Epinephrine solution was used. A paracentesis was placed. A capsulorrhexis was performed. The nucleus was hydrodissected. The lens was removed with phacoemulsification. Time was 1.93 seconds. The aspiration unit was used to remove the cortex. The capsule was filled with Amvisc Plus. The lens implant was folded and placed into the capsule. The incision was hydrated. The Amvisc was aspirated. The wound was secure. The chamber was deep. The pupil was round. Brimonidine, TobraDex ointment and Vigamox solution were placed. The speculum was removed. The patient was returned to the Recovery Room in stable condition. I attest to the content of the Intraoperative Record and any orders documented therein. Any exceptions are noted below. The scribe's documentation has been prepared in my presence, under my direction and personally reviewed by me in its entirety. I confirm that the note above accurately reflects all work, treatment, procedures, and medical decision making performed by me. I personally scribed for Neil Wolff M.D. ([email or web address]) on 11/12/17 at 08:56. Electronically submitted by Isidra Villatoro ([email or web address]).
--- NOTE | 2017-11-12 08:58 | Discharge Instructions-SurgCtr ---
Discharge Instructions Date of Service Nov 12, 2017. Visit Reason for Visit: Cataract Right Eye Discharge Discharge Diagnosis / Problem: lens implant right eye Discharge Goals Goal(s): Improve function Activity Recommendations Activity Limitations: resume your previous activity Lifting Limitations: no more than 10 pounds Exercise/Sports Limitations: gradually increase as tolerated May Resume Sexual Activity: when tolerated Shower/Bathe: tomorrow Driving or Machine Use: resume 1 day after discharge Anesthesia . Post Anesthesia Instructions: If you have had General Anesthesia or IV Sedation: * Do not drive today. * Resume driving when surgeon permits. * Do not make important decisions or sign legal documents today. * Call surgeon for: 1. Temperature elevations greater than 101 degrees F. 2. Uncontrollable pain. 3. Excessive bleeding. 4. Persistent nausea and vomiting. 5. Medication intolerance (nausea, vomiting or rash). * For nausea and vomiting use only clear liquids such as: tea, soda, bouillon until nausea subsides, then gradually increase diet as tolerated. * If you have any concerns or questions, call your surgeon's office. If physician is unavailable and it is an emergency, call 911 or go to the nearest emergency room. . Instructions / Follow-Up Instructions / Follow-Up ACTIVITY RECOMMENDATIONS: * Light activities. * Mild irritation and blurred vision are common for the first few days. * You may walk outside, read, watch television. * Redness around the white part of the eye is common. MEDICATIONS: Resume previous medications unless instructed otherwise by your surgeon. * Take white Diamox (Acetazolamide) tablet at 1 pm today. Start all eye drops at 1 pm today: * Eye drops (today and tomorrow): Prednisone - one drop in operative eye every 3 hours while awake Ofloxacin - one drop in operative eye every 3 hours while awake SPECIAL CARE INSTRUCTIONS: * Tape plastic shield over eye to sleep at night. Call your doctor at with any concerns or problems. FOLLOW UP VISIT: Follow-up with Dr Wolff at [facility] as scheduled. Diet Recommendations Home Diet: no limitations Procedures Procedures Performed: Right Cataract Phacoemulsification With Intraocular Lens Implant Pending Studies Studies pending at discharge: no Medical Emergencies . Who to Call and When: Medical Emergencies: If at any time you feel your situation is an emergency, please call 911 immediately. . Non-Emergent Contact Non-Emergency issues call your: Decorator Mannequin Call Non-Emergent contact if: your pain is not controlled [phone] . . "Provider Documentation" section prepared by Neil Wolff. .
[2017-11-12 08:59] VITALS: TEMP 36.6
[2017-11-12 09:25] VITALS: BP 220/85; PULSE 57; O2SAT 95
--- NOTE | 2017-11-12 09:41 | Anesthesia Progress Nt - [facility] ---
Anesthesia Post Op Note Date & Time Nov 12, 2017 at 09:38 Vital Signs Pain Intensity: 0 Vital Signs Past 12 Hours Date Time Temp Pulse Resp B/P (MAP) Pulse Ox O2 Delivery O2 Flow Rate FiO2 11/12/17 09:25 57 18 191/84 (119) 95 Room Air 220/85 (130) 11/12/17 08:59 36.6 57 16 170/69 (102) 99 Room Air 11/12/17 08:04 37.3 60 16 175/76 (109) 93 Room Air Notes Mental Status: alert / awake / arousable, participated in evaluation Pt Amnestic to Procedure: Yes Nausea / Vomiting: adequately controlled Pain: adequately controlled Airway Patency, RR, SpO2: stable & adequate BP & HR: stable & adequate Hydration State: stable & adequate Anesthetic Complications: no major complications apparent BP at discharge was 220/85. He did miss pretty substantial doses of his anti hypertensives this morning. He was pain free and symptom free as far as the hypertension. I suspect that this systolic reading is related to missing his medications and I do not want to treat him aggressively with IV medications as he is asymptomatic and I do not want to risk rebound hypertension on discharge. I did instruct him to take his medications immediately upon discharge at to relax at home. If he experiences any headache, shortness of breath, or chest pain, he and his are aware that he needs to be seen immediately in the ER as it could be signs of a hypertensive emergency.
== END | disposition home or self-care (01) ==
LOC: X.SURG 07:48
PROVIDERS: ATTEND Specialist
DX: H25.11 Age-related nuclear cataract, right eye (principal); E11.9 Type 2 diabetes mellitus without complications; I10 Essential (primary) hypertension; E66.9 Obesity, unspecified; Z86.73 Personal history of transient ischemic attack (TIA), and cerebral infarction without residual deficits; I25.10 Atherosclerotic heart disease of native coronary artery without angina pectoris

== ENCOUNTER → 2017-11-13 | Outpatient (CLI) | payer BC ==
[~2017-11-13] MED LIST changes: -500ML BSS 0.3ML EPI 1:1000PF IRRIG ONE; -ACETAMINOPHEN 325 MG TAB PO PRN; -AMVISC PLUS 0.8ML SYRINGE INT OCU ONE; -ATROPINE SULFATE 0.1 MG/ML 5ML SYR IV PRN; -AcetaZOLAMIDE 250 MG TAB PO SCH; -BETAXOLOL HCL 0.25% OP SUSP PER DROP CHARGE OPR SCH; -BRIMONIDINE TART 0.2% OP SOLN PER DROP CHARGE ONE; -BSS FLUSH ONE; -ENDOCOAT 0.85ML SYRINGE INT OCU ONE; -EpHEDrine SULFATE INJ 50 MG/ML AMP IV PRN; -EpINEphrine INJ 1MG/ML AMP 1 MG/ML AMP ONE; -FENTANYL CITRATE INJ 50 MCG/1 ML 2 ML VIAL IV PRN; -LACTATED RINGER'S 1000ML 500 ML IV SCH; -LIDOCAINE 4% OP SOLN DROP CHARGE ONE; -LIDOCAINE 4% OP SOLN DROP CHARGE OPR SCH; -LIDOCAINE HCL 1% MPF 2 ML VIAL ONE; -MIDAZOLAM HCL 1 MG/ML 2ML VIAL ONE; -MIX: 4ML BSS 1ML EPI 1:1000 PF INSTIL ONE; -MOXIFLOXACIN OPH SOLN PER DROP CHARGE ONE; -ONDANSETRON INJ 2 MG/ML 2 ML VIAL IV PRN; -POVIDONE-IODINE OP SOLN 30 ML BTL ONE; -PROPARACAINE 0.5% OP SOLN PER DROP CHARGE OPR SCH; -TOBRAMYCIN/DEXAMETHASONE OPH OINT PER APPLN CHARGE ONE
[2017-11-13 09:54] LABS: BLOOD UREA NITROGEN 29 mg/dl (7-18); CALCIUM 8.5 mg/dl (8.5-10.1); CARBON DIOXIDE 24 mmol/L (21-32); CREATININE 1.25 mg/dl (0.60-1.40); GLUCOSE 164 mg/dl (70-99); HEMOGLOBIN A1C 7.4 % (4.5-5.6); POTASSIUM 4.1 mmol/L (3.5-5.1); SODIUM 139 mmol/L (136-145)
== END | disposition home or self-care (01) ==
LOC: C.LAB 07:02
DX: E11.9 Type 2 diabetes mellitus without complications (principal)